=== PATIENT | male | born 1990 | race African-American/Black ===

== ENCOUNTER → 2020-03-19 | Outpatient (CLI) | payer BC ==
[2018-08-27 18:25] VITALS: BP 123/82
[~2020-03-19] MED LIST: AMLO10TA8 PO; AMLO5TAB4 PO; CARV12.511 PO; IOHEXOL 300 MG/ML 100ML VIAL. IV ONE; ISOS30TA4 PO; LISI1TAB20 PO
--- NOTE | 2020-03-19 15:12 | KCIC ---
CT neck with and without IV contrast and without comparison for neck mass seen on ultrasound. TECHNIQUE: CT of the neck with and without IV contrast, including sagittal and coronal reformations was obtained. FINDINGS: The reference ultrasound is not available for comparison at the time of interpretation. There is a nonenhancing fluid-filled midline cystic structure measuring 5 cm x 2 cm transverse and craniocaudal respectively, originating in the infrahyoid space and extending caudally to the base of the thyroid cartilage. No air or internal complex elements are identified. This abnormality is deep to the strap muscles and displaces these muscles anteriorly. Imaging is highly characteristic for a benign thyroglossal duct cyst. No suspicious soft tissue elements are identified. Thyroid gland is grossly unremarkable. No suspicious adenopathy is seen. The sublingual space, parapharyngeal space, parotid space, prevertebral space, and carotid spaces are all normal. No osseous abnormalities. IMPRESSION: 1. 5 cm midline fluid-filled infrahyoid abnormality with imaging characteristics highly consistent with a benign thyroglossal duct cyst. No secondary evidence of infection and no suspicious soft tissue components or adenopathy. PQRS Compliance Statement: One or more of the following individualized dose reduction techniques were utilized for this examination: 1. Automated exposure control 2. Adjustment of the mA and/or kV according to patient size 3. Use of iterative reconstruction technique Electronically signed by: Abran Gu MD (03/19/2020 3:09 PM) [id number]
== END | disposition home or self-care (01) ==
LOC: KCIC CT 08:18
PROVIDERS: ATTEND Family Medicine
DX: R22.1 Localized swelling, mass and lump, neck (principal)
CPT/HCPCS: 70492; Q9967